=== PATIENT | male | born 1965 | race Two or more races ===

== ENCOUNTER 2016-08-03 10:18 | Day surgery (SDC) | payer MEDICARE, BC ==
[~2016-08-03] VITALS: Ht 170.2 cm; Wt 81.3 kg
[2016-08-03] MEDS ORDERED: EFFEXOR (11:00)
[2016-08-03] MEDS ORDERED: NAPROXEN (11:00)
[2016-08-03] MEDS ORDERED: GABAPENTIN (11:00)
[2016-08-03] MEDS ORDERED: TRAMADOL (11:00)
[2016-08-03 11:03] VITALS: Ht 170.2 cm; Wt 81.3 kg
[2016-08-03] MEDS ORDERED: FENTAnyl 50 MCG/ML VIAL ONE (11:21)
[2016-08-03] MEDS ORDERED: PROPOFOL 20 ML ONE (11:21)
[2016-08-03 11:35] VITALS: BP 121/74; PULSE 71; RESP 18
[2016-08-03 12:31] VITALS: BP 130/89; PULSE 67; RESP 16
--- NOTE | 2016-08-03 12:38 | GILP ---
DATE OF PROCEDURE: NAME OF PROCEDURE: Colonoscopy and biopsy. SURGEON: Rowan Mohan MD PREOPERATIVE DIAGNOSIS: Change in the bowel habit. POSTOPERATIVE DIAGNOSES: 1. Colonoscopy all the way to the cecum. 2. Two transverse colon polyps were removed using the biopsy forceps. 3. Internal hemorrhoids. INDICATION FOR THE PROCEDURE: Mr. Morro Obregon is a 50-year-old male patient who noticed a change in the bowel habits. He never had screening colonoscopy. The procedure and possible complications were well explained to the patient. He understood and cons ented to the procedure. DESCRIPTION OF PROCEDURE: Under the influence of anesthesia the colonoscope was carefully introduce d in the rectum and under direct vision it was advanced all the way to the cecum. FINDINGS: The patient had 2 small transverse colon polyps and they were removed using the biopsy fo rceps. He had internal hemorrhoids. He tolerated the procedure very well and there was no complication from the procedure. At the end o f the procedure, he was awake with stable vital signs, and he was discharged home to the care of his family. IMPRESSION: 1. Colonoscopy all the way to the cecum. 2. Two small transverse colon polyps were removed using the biopsy forceps. 3. Internal hemorrhoids. PLAN: 1. Linzess 145 mcg p.o. daily in the a.m. for constipation. 2. Await histopathology report. 3. Next screening colonoscopy in 5 years. Dictated By: ROWAN CALIXTO/PENELOPE Conf#: [id number] DID#: [id number]
== END 2016-08-03 12:58 | disposition home or self-care (01) ==
LOC: MERGE 10:18 → GIL 10:18
PROVIDERS: ATTEND Internal Medicine Gastroenterology
DX: R19.4 Change in bowel habit (principal); K64.8 Other hemorrhoids; D12.3 Benign neoplasm of transverse colon; F41.9 Anxiety disorder, unspecified
CPT/HCPCS: 45380; 88305; J3010

== ENCOUNTER 2016-12-13 12:37 | Day surgery (SDC) | payer MEDICARE, BC ==
[2016-12-12 11:08] VITALS: BMI 29.4
[2016-12-13] VITALS (12 sets, daily range): BP systolic 100–118; BP diastolic 59–82; PULSE 60–70; RESP 14–16; Ht 170.2 cm; Wt 79.5 kg
[~2016-12-13] VITALS: Ht 170.2 cm; Wt 79.5 kg
[~2016-12-13 12:37] MED LIST: EFFEXOR; GABAPENTIN; NAPROXEN; PROPOFOL 200 MG INJ ONE; ROCURONIUM 50 MG INJ ONE; TRAMADOL
[2016-12-13] MEDS ORDERED: NAPR-688 PO (13:27)
[2016-12-13] MEDS ORDERED: GABA300C16 PO (13:27)
[2016-12-13] MEDS ORDERED: VIT1TABL85 PO (13:27)
[2016-12-13] MEDS ORDERED: OMEG-80 PO (13:27)
[2016-12-13] MEDS ORDERED: TRAM-40 PO (13:27)
[2016-12-13] MEDS ORDERED: OMEP20CA16 PO (13:27)
[2016-12-13] MEDS ORDERED: FLUT16SP17 NASAL (13:27)
[2016-12-13 14:10] LABS: INR 1.14; PROTIME 14.6 Sec (12.2-14.2); PT RATIO 1.1
[2016-12-13 14:11] LABS: PARTIAL THROMBOPLASTIN TIME 33.8 Sec (25.0-35.0)
[2016-12-13] MEDS ORDERED: ROPIVACAINE 0.5 % 30 ML VIAL ONE (14:56)
[2016-12-13] MEDS ORDERED: BACITRACIN/POLYMYXIN 28.35 GM OINT TOP ONE (14:56)
[2016-12-13] MEDS ORDERED: BUPIVACAINE 0.5% (SDV) 30 ML INJ ONE (14:56)
[2016-12-13] MEDS ORDERED: NEOMYC/POLYMYX/BACIT 30 GM OINT ONE (14:57)
--- NOTE | 2016-12-13 15:08 | HPN ---
Date/Time of Note Date/Time of Note DATE: 12/13/16 TIME: 15:08 Interval H&P Admission Note Pt. seen H&P reviewed: No system changes ALAN BROOKE MD Dec 13, 2016 15:08
[2016-12-13] MEDS ORDERED: PROPOFOL 20 ML ONE (15:09)
[2016-12-13] MEDS ORDERED: CEFAZOLIN 1 GM INJ ONE (15:09)
[2016-12-13] MEDS ORDERED: MIDAZOLAM 1 MG/ML 2 ML INJ ONE (15:09)
[2016-12-13] MEDS ORDERED: FENTAnyl 50 MCG/ML VIAL ONE (15:09)
[2016-12-13] MEDS ORDERED: morphine 2 MG INJ IV PRN (15:30)
[2016-12-13] MEDS ORDERED: OXYCODONE/ACETAMINOPHEN (5/325) TAB PO PRN ×3 (15:30→16:00)
[2016-12-13] MEDS ORDERED: ACETAMINOPHEN 1000MG/100ML IV 100 ML ONE (15:38)
[2016-12-13] MEDS ORDERED: DEXAMETHASONE 4 MG/ML 1 ML INJ ONE (15:38)
[2016-12-13] MEDS ORDERED: METOCLOPRAMIDE 10 MG INJ ONE (15:38)
[2016-12-13] MEDS ORDERED: KETOROLAC 30 MG INJ ONE (15:38)
[2016-12-13] MEDS ORDERED: ONDANSETRON 4 MG INJ ONE (15:38)
[2016-12-13] MEDS ORDERED: SUGAMMADEX SODIUM 200 MG/2 ML VIAL IV ONE (15:56)
[2016-12-13] MEDS ORDERED: ONDANSETRON 4 MG INJ IV PRN (16:00)
[2016-12-13] MEDS ORDERED: METOCLOPRAMIDE 10 MG INJ IV PRN (16:00)
[2016-12-13] MEDS ORDERED: EPHEDrine SULFATE 50 MG/5 ML SYG IV PRN (16:00)
[2016-12-13] MEDS ORDERED: HYDROmorphONE (0.2 MG/ML) 10ML SYG IV PRN ×3 (16:00)
[2016-12-13] MEDS ORDERED: LABETALOL HCL 20MG INJ IV PRN (16:00)
[2016-12-13] MEDS ORDERED: MEPERIDINE 25 MG INJ IV PRN (16:00)
[2016-12-13] MEDS ORDERED: FENTAnyl 50 MCG/ML VIAL IV PRN ×2 (16:00)
[2016-12-13] MEDS ORDERED: DIPHENHYDRAMINE 50 MG INJ IV PRN (16:00)
[2016-12-13] MEDS: FENTAnyl 50 MCG/ML VIAL IV PRN ×2 (16:52→17:16)
--- NOTE | 2016-12-13 17:13 | OPR ---
Date/Time of Note Date/Time of Note DATE: 12/13/16 TIME: 17:04 Operative Report Procedure Date: Dec 13, 2016 Surgeon: ALAN BROOKE MD Anesthesia Type: general Anesthesiologist: VICKIE FUENTES MD Transfusion Required: no Specimen: none Grafts/Implants: none Complications: no Pt Condition Post Procedure: stable Disposition: PACU Procedure Description PREOP DIAGNOSES: 1. Right knee pain 2. 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 Right knee posterior horn medial meniscal tear POSTOP DIAGNOSES: 1. Right knee pain 2. 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 Right knee posterior horn and midbody medial meniscal tear PROCEDURE: 1. Surgical arthroscopy of the Right knee with partial medial meniscectomy 2. Chondroplasty of the medial and patella femoral compartments TOURNIQUET TIME: 25 MINUTES AT 250 mmHg EBL: Less than 20 ML COMPLICATIONS: None CONDITION UPON LEAVING THE OPERATING ROOM: Stable to PACU ANESTHESIA TYPE: General, local INDICATIONS: Patient is a 51-year-old male with ongoing Right knee pain. The patient has complained of having clicking and locking symptoms over the medial aspect of the knee with no relief with PT or anti-inflammatories. Patient has decided to proceed with surgery RISK NOTE: Patient was explained the risks and benefits of the surgery in the patients kiana language, including not limited to infection, bleeding, loss of limb, loss of life, need for future surgery, risk of anesthesia, risk of injury to the blood vessels and nerves, ligaments or tendons, and risk of deep vein thrombosis. Patient understood these risks and wished to proceed with the surgery. OPERATIVE NOTE: The correct operative site was noted and marked in the preoperative holding area. The patient was then brought back into the operative theater, placed supine on the operative table. Right knee was examined under anesthesia. Range of motion was 0-120. There is no varus or valgus or anterior or posterior instability. There is crepitus noticed at the patellofemoral joint. Tourniquet was then placed on the operative extremity thigh non-sterilely. Patient was then given preoperative antibiotics and then prepped and draped in normal sterile fashion. A timeout was taken and all parties in the room agreed it was the correct patient, correct extremity and correct procedure. 10 cc of 0.25% Marcaine without epi was injected into the anteriorlateral and anteriormedial portal sites prior to incision. Standard anterior lateral portal was created and the knee joint was entered with a blunt tipped trocar, followed by 30 arthroscope. Inflow was achieved with a pump and the pressure maintained at approximately 50 mmHg. A routine arthroscopic surgery was performed. The undersurface of the patella showed advanced grade 2 chondromalacia and the medial femoral trochlear groove showed grade 2 changes midline with no exposed bone. The medial and lateral gutters were visualized. There is no hypertrophic plica noted in the anterior and superior lateral aspect of the knee. The popliteus hiatus was entered and was normal. Lateral compartment was entered no chondromalacia was seen on the lateral tibial plateau. Scope was then brought into the intercondylar notch and an anteromedial portal was made. Shaver was brought into the knee and small amount of fat pad and scar tissue was initially gently debrided. The articular surface of the lateral plateau and lateral condyle articular surface was largely well- maintained. The anterior cruciate ligament was intact and stable to probing. The knee was brought into a valgus position and the medial compartment was entered. The articular surface of the medial femoral condyle and medial tibial plateau revealed diffuse grade 3 chondromalacia with the majority of the grade 3 chondral malacia noted along the medial femoral condyle. There was a degenerative posterior horn medial meniscus tear that was associated with a radial and horizontal cleavage tear extending into the midbody that was visualized and debrided gently with a motorized shaver and basket forceps, the posterior horn demonstrated a degenerative tear and shearing pattern. The motorized shaver and basket biters were used to smooth the remaining meniscal rim, with care to maintain the peripheral meniscal rim and have a stable horn attachment. A probe was introduced and this was carefully probed and was found to be stable. Chondroplasty was then carried out along the weightbearing aspect of the medial femoral condyle, medial tibial plateau, taking care to remove only loose articular cartilage debris and preserve functional articular cartilage. The lateral compartment was reentered and the loose chondral debris was debrided with motorized shaver. The knee was then irrigated with additional 2 L of lactated Ringers solution. Excess fluid was then drained. The portal sites were closed with 4-0 Monocryl and Steri-Strips and dressed with Xeroform and triple antibiotic ointment. The knee was then injected with 20 cc of 0.5% plain ropivacaine. A dry sterile dressing was then applied followed by a bulky soft bandage in a Bias wrapping compresion At the completion of the surgery patient had palpable pulses, soft arms and brisk cap refill. The patient tolerated the procedure well and was taken to the PACU without any complications. All sponge and needle counts were correct. Patient will begin pain medicine and 48 hours of antibiotics as well ALAN BROOKE MD Dec 13, 2016 17:13
== END 2016-12-13 17:50 | disposition home or self-care (01) ==
LOC: SDS 12:37
PROVIDERS: ATTEND Orthopaedic Surgery
DX: M23.221 Derangement of posterior horn of medial meniscus due to old tear or injury, right knee (principal); M23.231 Derangement of other medial meniscus due to old tear or injury, right knee; M94.261 Chondromalacia, right knee
CPT/HCPCS: 29881; 85610; 85730; J0131; J0690; J1100; J1885; J2250; J2405; J2765; J2795; J3010